=== PATIENT | male | born 1940 | race Caucasian/White ===

== ENCOUNTER 2024-08-28 13:15 | Emergency (ER) | payer OTHER, MEDICARE ==
[2024-08-28 13:34] VITALS: RESP 16; BMI 24.3
[2024-08-28] MEDS ORDERED: DIPHTH,PERTUSS(ACELL),TET 0.5 ML DISP.SYRIN IM ONE (13:35)
[2024-08-28] MEDS: DIPHTH,PERTUSS(ACELL),TET 0.5 ML DISP.SYRIN IM ONE (13:40)
[2024-08-28 15:51] VITALS: BP 143/75; PULSE 54; TEMP 98.1
== END 2024-08-28 16:00 | disposition home or self-care (01) ==
LOC: FER 13:15
PROC: 3E0234Z Introduction of Serum, Toxoid and Vaccine into Muscle, Percutaneous Approach (ICD-10-PCS; principal; 2024-08-28)
DX: S01.01XA Laceration without foreign body of scalp, initial encounter (principal); S40.212A Abrasion of left shoulder, initial encounter; W10.9XXA Fall (on) (from) unspecified stairs and steps, initial encounter; Z23 Encounter for immunization
CPT/HCPCS: 70450-TC; 72125-TC; 90471; 90715; 93005; 99284-25